=== PATIENT | female | born 1970 | race Caucasian/White ===

== ENCOUNTER 2020-07-18 21:05 | Observation (INO) | payer BC ==
[2020-07-18] MEDS ORDERED: ASPIRIN 81 MG PO STA (21:48)
[2020-07-18] MEDS ORDERED: NITROGLYCERIN SL TABS 0.4 MG TAB SUBLINGUAL STA (21:48)
--- NOTE | 2020-07-18 21:50 | ED ---
General Adult HPI - General Chief complaint: Shortness of Breath Stated complaint: Rib Pain Time Seen by Provider: 07/18/20 21:35 Source: patient, RN notes reviewed Mode of arrival: ambulatory Limitations: no limitations - History of Present Illness Initial comments: Patient is a pleasant 49-year-old female presenting to the emergency Department with chest tightness. Onset of symptoms was several days ago and has progressed since that time. Comfort is more so on the left lateral chest and does wrap around. Discomfort does involve the right side as well. Discomfort does increase somewhat with deep breaths. Otherwise no dyspnea. No nausea. No diaphoresis. No history of similar symptoms previously. - Related Data Allergies Allergy/AdvReac Type Severity Reaction Status Date / Time No Known Allergies Allergy Verified 07/18/20 21:17 Review of Systems ROS Statement: Those systems with pertinent positive or pertinent negative responses have been documented in the HPI. ROS Other: All systems not noted in ROS Statement are negative. Constitutional: Denies: fever Eyes: Denies: eye pain ENT: Denies: ear pain Respiratory: Denies: cough Cardiovascular: Reports: as per HPI, chest pain Endocrine: Denies: fatigue Gastrointestinal: Denies: abdominal pain Genitourinary: Denies: dysuria Musculoskeletal: Denies: arthralgia Skin: Denies: rash Neurological: Denies: weakness Past Medical History Additional Past Medical History / Comment(s): cyst to roof of mouth History of Any Multi-Drug Resistant Organisms: None Reported Additional Past Surgical History / Comment(s): drain placed to cyst in the roof of her mouth Past Psychological History: No Psychological Hx Reported Smoking Status: Former smoker Past Alcohol Use History: None Reported Past Drug Use History: None Reported General Exam Limitations: no limitations General appearance: alert, in no apparent distress Head exam: Present: normocephalic Eye exam: Present: normal appearance Neck exam: Present: normal inspection Respiratory exam: Present: normal lung sounds bilaterally. Absent: chest wall tenderness Cardiovascular Exam: Present: regular rate, normal rhythm Expanded Peripheral pulses: 2+: Radial (R), Radial (L), Dorsalis Pedis (R), Dorsalis Pedis (L) GI/Abdominal exam: Present: soft. Absent: distended, tenderness Extremities exam: Present: normal inspection. Absent: pedal edema, calf tenderness Back exam: Present: normal inspection. Absent: tenderness Neurological exam: Present: alert Psychiatric exam: Present: normal affect, normal mood Skin exam: Present: normal color Course Vital Signs 07/18/20 07/18/20 21:12 22:10 Temperature 97.5 F L Pulse Rate 62 Respiratory 18 18 Rate Blood Pressure 101/67 O2 Sat by Pulse 98 Oximetry EKG Findings - EKG Comments: EKG Findings:: Sinus bradycardia 53. NH 120. QRS 82. QT 466. QTc 437. Normal axis. Normal QRS. No acute ST change. Medical Decision Making - Medical Decision Making Patient reevaluated and resting comfortably in bed. Symptoms have improved however not completely resolved. Patient updated on results and plan. Case was discussed with Dr. jones, who will admit for hospital call. - Lab Data Result diagrams: 07/18/20 22:26 07/18/20 22:26 Lab Results 07/18/20 07/18/20 07/18/20 Range/Units 22:26 22:26 22:26 WBC 7.1 (3.8-10.6) k/uL RBC 4.45 (3.80-5.40) m/uL Hgb 14.3 (11.4-16.0) gm/dL Hct 40.7 (34.0-46.0) % MCV 91.5 (80.0-100.0) fL MCH 32.2 (25.0-35.0) pg MCHC 35.2 (31.0-37.0) g/dL RDW 11.7 (11.5-15.5) % Plt Count 240 (150-450) k/uL MPV 7.1 Neutrophils % 50 % Lymphocytes % 39 % Monocytes % 5 % Eosinophils % 3 % Basophils % 1 % Neutrophils # 3.6 (1.3-7.7) k/uL Lymphocytes # 2.8 (1.0-4.8) k/uL Monocytes # 0.4 (0-1.0) k/uL Eosinophils # 0.2 (0-0.7) k/uL Basophils # 0.1 (0-0.2) k/uL PT 10.2 (9.0-12.0) sec INR 0.9 (<1.2) APTT 26.4 (22.0-30.0) sec D-Dimer 0.24 (<0.60) mg/L FEU Sodium 137 (137-145) mmol/L Potassium 4.1 (3.5-5.1) mmol/L Chloride 103 (98-107) mmol/L Carbon Dioxide 26 (22-30) mmol/L Anion Gap 8 mmol/L BUN 13 (7-17) mg/dL Creatinine 0.64 (0.52-1.04) mg/dL Est GFR (CKD-EPI)AfAm >90 (>60 ml/min/1.73 sqM) Est GFR (CKD-EPI)NonAf >90 (>60 ml/min/1.73 sqM) Glucose 98 (74-99) mg/dL Calcium 9.2 (8.4-10.2) mg/dL Magnesium 2.1 (1.6-2.3) mg/dL Total Bilirubin 0.4 (0.2-1.3) mg/dL AST 25 (14-36) U/L ALT 22 (4-34) U/L Alkaline Phosphatase 93 (38-126) U/L Troponin I (0.000-0.034) ng/mL Total Protein 7.2 (6.3-8.2) g/dL Albumin 4.2 (3.5-5.0) g/dL 07/18/20 Range/Units 22:26 WBC (3.8-10.6) k/uL RBC (3.80-5.40) m/uL Hgb (11.4-16.0) gm/dL Hct (34.0-46.0) % MCV (80.0-100.0) fL MCH (25.0-35.0) pg MCHC (31.0-37.0) g/dL RDW (11.5-15.5) % Plt Count (150-450) k/uL MPV Neutrophils % % Lymphocytes % % Monocytes % % Eosinophils % % Basophils % % Neutrophils # (1.3-7.7) k/uL Lymphocytes # (1.0-4.8) k/uL Monocytes # (0-1.0) k/uL Eosinophils # (0-0.7) k/uL Basophils # (0-0.2) k/uL PT (9.0-12.0) sec INR (<1.2) APTT (22.0-30.0) sec D-Dimer (<0.60) mg/L FEU Sodium (137-145) mmol/L Potassium (3.5-5.1) mmol/L Chloride (98-107) mmol/L Carbon Dioxide (22-30) mmol/L Anion Gap mmol/L BUN (7-17) mg/dL Creatinine (0.52-1.04) mg/dL Est GFR (CKD-EPI)AfAm (>60 ml/min/1.73 sqM) Est GFR (CKD-EPI)NonAf (>60 ml/min/1.73 sqM) Glucose (74-99) mg/dL Calcium (8.4-10.2) mg/dL Magnesium (1.6-2.3) mg/dL Total Bilirubin (0.2-1.3) mg/dL AST (14-36) U/L ALT (4-34) U/L Alkaline Phosphatase (38-126) U/L Troponin I <0.012 (0.000-0.034) ng/mL Total Protein (6.3-8.2) g/dL Albumin (3.5-5.0) g/dL - Radiology Data Radiology results: image reviewed (Chest x-ray shows no acute process) Disposition Clinical Impression: Chest pain Disposition: ADMITTED IP TO THIS HOSP Is patient prescribed a controlled substance at d/c from ED?: No Referrals: Antoni Busby DO [Primary Care Provider] - 1-2 days Decision Time: 23:25
[2020-07-18 22:38] LABS: Basophils # (A) 0.1 k/uL (0-0.2); Basophils % (A) 1 %; Eosinophils # (A) 0.2 k/uL (0-0.7); Eosinophils % (A) 3 %; HCT 40.7 % (34.0-46.0); HGB 14.3 gm/dL (11.4-16.0); Lymphocytes # (A) 2.8 k/uL (1.0-4.8); Lymphocytes % (A) 39 %; MCH 32.2 pg (25.0-35.0); MCHC 35.2 g/dL (31.0-37.0); MCV 91.5 fL (80.0-100.0); Mean Platelet Volume 7.1; Monocytes # (A) 0.4 k/uL (0-1.0); Monocytes % (A) 5 %; Neutrophils # (A) 3.6 k/uL (1.3-7.7); Neutrophils % (A) 50 %; Platelet Count 240 k/uL (150-450); RBC 4.45 m/uL (3.80-5.40); RDW 11.7 % (11.5-15.5); WBC 7.1 k/uL (3.8-10.6)
--- NOTE | 2020-07-18 22:49 | XR ---
EXAMINATION TYPE: XR chest 2V DATE OF EXAM: 07/18/2020 COMPARISON: NONE HISTORY: Left-sided rib pain. Short of breath. TECHNIQUE: 2 views FINDINGS: Heart and mediastinum are normal. Lungs are clear. Diaphragm is normal. Bony thorax appears normal. There are chest leads. IMPRESSION: Normal chest.
[2020-07-18 22:54] LABS: ALT 22 U/L (4-34); AST 25 U/L (14-36); African American GFR (CKD) >90 (>60 ml/min/1.73 sqM); Albumin 4.2 g/dL (3.5-5.0); Alkaline Phosphatase 93 U/L (38-126); Anion Gap 8 mmol/L; Blood Urea Nitrogen 13 mg/dL (7-17); Calcium 9.2 mg/dL (8.4-10.2); Carbon Dioxide 26 mmol/L (22-30); Chloride 103 mmol/L (98-107); Glucose 98 mg/dL (74-99); Magnesium 2.1 mg/dL (1.6-2.3); Non-African American GFR(CKD) >90 (>60 ml/min/1.73 sqM); Potassium 4.1 mmol/L (3.5-5.1); Sodium 137 mmol/L (137-145); Total Bilirubin 0.4 mg/dL (0.2-1.3); Total Protein 7.2 g/dL (6.3-8.2)
[2020-07-18 23:11] LABS: D-Dimer 0.24 mg/L FEU (<0.60); INR 0.9 (<1.2); Partial Thromboplastin Time 26.4 sec (22.0-30.0); Prothrombin Time 10.2 sec (9.0-12.0)
[2020-07-18] MEDS ORDERED: NITROGLYCERIN SL TABS 0.4 MG TAB SUBLINGUAL PRN (23:25)
--- NOTE | 2020-07-19 02:44 | P.CONS ---
History of Present Illness - Reason for Consult Consult date: 07/19/20 - History of Present Illness Patient is a 49-year-old female PMH of anxiety and panic disorder who presented to the emergency room with complaints of chest pain. The patient reports that she initially developed a left-sided lateral wall sharp chest pain 2-3 weeks ago. Pain was intermittent, brought on by lifting heavy objects or by taking deep breaths, 7 out of 10 when it would occur, lasting only for a few seconds, n on-radiating. She notes that the pain was not bothering her much but she then developed intermittent substernal pressure, 8/10, occuring daily after her work shifts, lasting for several minutes at a time, with no clear alleviating or exacerbating features, nonradiating, with associated shortness of breath, nausea, and dizziness. She denied leg pain or leg swelling. She also denied fever, cough, headaches, diarrhea, or abdominal pain. She underwent an extensive evaluation in the emergency room with a chest x-ray that was unremarkable. EKG reveals sinus bradycardia at 53 bpm with T-wave inv ersion in lead V-[address]/T-wave changes noted as reviewed by me. Laboratory evaluation revealed a troponin of less than 0.012 and d-dimer 0.24. Review of Systems Pertinent positives and negatives as discussed in HPI, a complete review of systems was performed and all other systems are negative. Past Medical History Additional Past Medical History / Comment(s): cyst to roof of mouth History of Any Multi-Drug Resistant Organisms: None Reported Additional Past Surgical History / Comment(s): drain placed to cyst in the roof of her mouth Past Psychological History: No Psychological Hx Reported Smoking Status: Former smoker Past Alcohol Use History: None Reported Past Drug Use History: None Reported Medications and Allergies Allergies Allergy/AdvReac Type Severity Reaction Status Date / Time No Known Allergies Allergy Verified 07/18/20 21:17 Physical Exam Vitals: Vital Signs Temp Pulse Resp BP Pulse Ox 07/19/20 00:57 63 16 112/75 97 07/18/20 23:59 104/64 07/18/20 23:27 64 16 113/70 98 07/18/20 22:10 18 07/18/20 21:12 97.5 F L 62 18 101/67 98 Intake and Output 07/18/20 07/18/20 07/19/20 14:59 22:59 06:59 Other: Weight 74.843 kg General: non toxic, no distress, appears at stated age, overweight Derm: no unusual rashes/lesions no unusual ecchymoses, warm, dry Head: atraumatic, normocephalic, symmetric Eyes: EOMI, no lid lag, anicteric sclera, pupils equal round reactive to light ENT: Nose and ears atraumatic, no thrush, no pharyngeal erythema Neck: No thyromegaly, no cervical lymphadenopathy, trachea midline, supple Mouth: no lip lesion, mucus membranes moist Cardiovascular: S1S2 reg, no murmur, positive posterior tibial pulse bilateral, no edema, capillary refill less than 2 seconds Lungs: CTA bilateral, no rhonchi, no rales , no accessory muscle use Abdominal: soft, nontender to palpation, no guarding, no appreciable organomegaly, normal bowel sounds Ext: no gross muscle atrophy, muscle strength 5 out of 5 in all 4 extremities grossly, no contractures, Neuro: CN II-XI grossly intact, light touch intact all 4 extremities, finger to nose within normal limits, Psych: Alert, oriented, appropriate affect Results CBC & Chem 7: 07/18/20 22:26 07/18/20 22:26 Assessment and Plan Plan: Chest discomfort, with atypical features, ACS versus panic disorder -Cardiology consult -Cardiac monitoring -Trend troponin -Continue with aspirin DVT prophylaxis -Heparin subq The patient is admitted with an anticipated less than 2 midnight stay for evaluation of chest pain CODE STATUS: Full Code Discussed with: Patient Anticipated discharge date: in am Anticipated discharge place: home A total of 35 minutes was spent on the care of this complex patient more than 50% of the time was spent in counseling and care coordination.
[2020-07-19] MEDS ORDERED: ALPRAZolam 1 MG TAB PO STA (03:08)
[2020-07-19] MEDS: NITROGLYCERIN OINT 1 INCH/GM PACKET TOPICAL SCH ×2 (03:14→08:44)
[2020-07-19 05:45] LABS: Cholesterol 193 mg/dL (<200); HDL Cholesterol 70 mg/dL (40-60); LDL Cholesterol,Calculated 105 mg/dL (0-99); Triglycerides 92 mg/dL (<150)
[2020-07-19] MEDS ORDERED: HEPARIN SODIUM,PORCINE 5,000 UNIT/ML 1 ML VIAL SQ SCH (08:00)
[2020-07-19 08:38] VITALS: BP 111/55; PULSE 61; RESP 16; TEMP 97.9
[2020-07-19] MEDS ORDERED: ASPIRIN 325 MG TAB PO SCH (09:00)
--- NOTE | 2020-07-19 10:05 | P.CRDCN ---
History of Present Illness History of present illness: HISTORY OF PRESENTING ILLNESS This is a pleasant 49-year-old female past medical history significant for former smoker and anxiety. 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 We have been asked to see in consultation for chest pain. Patient is seen and examined in the emergency department. Patient states yesterday before work she started getting left sided rib pain that radiated to her mid sternal chest and back. Of note patient works for [employer], and lifts a lot of heavy boxes. 2 weeks ago she was lifting a heavy box onto a conveyor belt and had this similar left-sided rib pain. She states that it's been getting worse over the past 2 weeks. Yesterday evening she states that the pain became unbearable and she presented to the emergency department. She describes the pain as 10/10 and a constant, dull aching pain and it lasted for hours. She states that she's been taking for extra strength Tylenol every day for the past 2 weeks and has had some relief. She has not had relief from this pain until she came to the emergency department she endorses some shortness of breath yesterday. The pain does not get worse with exertion and does not get better with rest. She denies palpitations or weakness, lightheadedness, syncope. She does endorse being very fatigued over the past year. She denies any symptoms or other orthopnea or difficulty breathing while sleeping. She states that she is a former smoker quit in 2019. Denies any history of coronary artery disease, hypertension, OR, stroke, diabetes. She denies alcohol or illicit drug use. She states that her father did of a heart attack when he was at the age of 75. Laboratory data reviewed, troponin negative 3, BNP 23 WBC 7.1, hemoglobin 14.3, platelets 240, sodium 137, potassium 4.1, creatinine 0.64, Vital signs blood pressure 111/55, heart rate 61, 99% on room air, afebrile. Patient is currently not on any cardiac medications at home DIAGNOSTICS EKG reveals sinus bradycardia, no ST-T wave abnormalities. 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 REVIEW OF SYSTEMS At the time of my exam: CONSTITUTIONAL: Denies fever or chills. CARDIOVASCULAR: +chest pain, +shortness of breath. Denies orthopnea, PND or palp itations. RESPIRATORY: Denies cough. GASTROINTESTINAL: Denies abdominal pain, diarrhea, constipation, nausea or vomiting. MUSCULOSKELETAL: +left sided rib pain, +back pain. Denies myalgias. NEUROLOGIC: Denies numbness, tingling, headacbe or weakness. ENDOCRINE: Denies fatigue, weight change, polydipsia or polyurina. GENITOURINARY: Denies burning, hematuria or urgency with micturation. HEMATOLOGIC: Denies history of anemia or bleeding. PHYSICAL EXAMINATION CONSTITUTIONAL: No apparent distress. HEENT: Head is normocephalic. Pupils are equal, round. Sclerae anicteric. Mucous membranes of the mouth are moist. No JVD. No carotid bruit. CHEST EXAMINATION: Lungs are clear to auscultation. No chest wall tenderness is noted on palpation or with deep breathing. HEART EXAMINATION: Regular rate and rhythm. S1, S2 heard. No murmurs, gallops or rub. ABDOMEN: Soft, nontender. Positive bowel sounds. EXTREMITIES: 2+ peripheral pulses, no lower extremity edema and no calf tenderness. SKIN: intact, no wounds or rashes NEUROLOGIC EXAMINATION: Patient is awake, alert and oriented x3. ASSESSMENT -Atypical chest pain- most likely musculoskeletal. Patients 10-year ASCVD risk factor is low 0.7% PLAN -2D echo -Exercise stress echo -If Echo and exercise stress echo normal- ok to discharge patient -Emphasize on lifestyle, diet and exercise for lipid panel management Nurse Practitioner note has been reviewed, I agree with a documented findings and plan of care. Patient was seen and examined. Past Medical History Past Medical History: GERD/Reflux Additional Past Medical History / Comment(s): cyst to roof of mouth with re moval/caused deterioration of bones in mouth and has had multiple dental procedures to restore teeth, pt states she has felt "weak" since oral surgery, restless/painful legs lately at night, recent "bloating whenever I eat" History of Any Multi-Drug Resistant Organisms: None Reported Additional Past Surgical History / Comment(s): Cystectomy/drain placed to cyst in the roof of her mouth at [facility] Past Anesthesia/Blood Transfusion Reactions: No Reported Reaction Smoking Status: Former smoker - Past Family History Father Family Medical History: Myocardial Infarction (OR) Additional Family Medical History / Comment(s): Father of a massive OR at the age of 75 yrs. Mother Additional Family Medical History / Comment(s): Mother had a leaky heart valve. She in her 70s. Medications and Allergies Home Medications Medication Instructions Recorded Confirmed Type ALPRAZolam [Xanax] 0.5 mg PO DAILY PRN 07/19/20 07/19/20 History Omeprazole 40 mg PO DAILY 07/19/20 07/19/20 History Allergies Allergy/AdvReac Type Severity Reaction Status Date / Time No Known Allergies Allergy Verified 07/19/20 06:48 Physical Exam Vitals: Vital Signs Temp Pulse Pulse Resp BP BP Pulse Ox 07/19/20 08:37 97.9 F 61 16 111/55 99 07/19/20 04:50 68 18 113/77 97 07/19/20 00:57 63 16 112/75 97 07/18/20 23:59 104/64 07/18/20 23:27 64 16 113/70 98 07/18/20 22:10 18 07/18/20 21:12 97.5 F L 62 18 101/67 98 Intake and Output 07/18/20 07/19/20 07/19/20 22:59 06:59 14:59 Other: Weight 74.843 kg 74.843 kg Results 07/18/20 22:26 07/18/20 22:26 Cardiac Enzymes 07/18/20 07/18/20 07/19/20 Range/Units 22:26 22:26 01:35 AST 25 (14-36) U/L Troponin I <0.012 <0.012 (0.000-0.034) ng/mL 07/19/20 Range/Units 05:12 AST (14-36) U/L Troponin I <0.012 (0.000-0.034) ng/mL Coagulation 07/18/20 Range/Units 22:26 PT 10.2 (9.0-12.0) sec APTT 26.4 (22.0-30.0) sec Lipids 07/19/20 Range/Units 05:12 Triglycerides 92 (<150) mg/dL Cholesterol 193 (<200) mg/dL HDL Cholesterol 70 H (40-60) mg/dL CBC 07/18/20 Range/Units 22:26 WBC 7.1 (3.8-10.6) k/uL RBC 4.45 (3.80-5.40) m/uL Hgb 14.3 (11.4-16.0) gm/dL Hct 40.7 (34.0-46.0) % Plt Count 240 (150-450) k/uL Comprehensive Metabolic Panel 07/18/20 Range/Units 22:26 Sodium 137 (137-145) mmol/L Potassium 4.1 (3.5-5.1) mmol/L Chloride 103 (98-107) mmol/L Carbon Dioxide 26 (22-30) mmol/L BUN 13 (7-17) mg/dL Creatinine 0.64 (0.52-1.04) mg/dL Glucose 98 (74-99) mg/dL Calcium 9.2 (8.4-10.2) mg/dL AST 25 (14-36) U/L ALT 22 (4-34) U/L Alkaline Phosphatase 93 (38-126) U/L Total Protein 7.2 (6.3-8.2) g/dL Albumin 4.2 (3.5-5.0) g/dL Current Medications Generic Name Dose Route Start Last Admin Trade Name Freq PRN Reason Stop Dose Admin Aspirin 325 mg 07/19/20 09:00 07/19/20 08:47 Aspirin 325 Mg Tab PO 325 mg DAILY CEDRICK Administration Nitroglycerin 0.4 mg 07/18/20 23:25 Nitroglycerin Sl Tabs 0.4 Mg Tab SUBLINGUAL Q5M PRN Chest Pain Nitroglycerin 1 inch 07/19/20 00:00 07/19/20 08:44 Nitroglycerin Oint 1 Inch/Gm Packet TOPICAL Not Given Q6HR CEDRICK Intake and Output 07/18/20 07/19/20 07/19/20 22:59 06:59 14:59 Other: Weight 74.843 kg 74.843 kg Patient Weight 07/20/20 06:59 Weight 74.843 kg 07/18/20 22:26 07/18/20 22:26
[2020-07-19] MEDS ORDERED: DOBUTamine DRIP for NUC MED 500 MG in DEXTROSE/WATER 1 250ML.BAG IV PRN (11:13)
--- NOTE | 2020-07-19 12:00 | ECHOF ---
Referral Reason:cp MEASUREMENTS -------- HEIGHT: 162.6 cm WEIGHT: 74.8 kg BP: 111/55 RVIDd: 2.4 cm (< 3.3) IVSd: 0.8 cm (0.6 - 1.1) LVIDd: 4.5 cm (3.9 - 5.3) LVPWd: 0.9 cm (0.6 - 1.1) IVSs: 1.4 cm LVIDs: 3.1 cm LVPWs: 1.2 cm LA Diam: 3.2 cm (2.7 - 3.8) LAESV Index (A-L): 15.51 ml/m Ao Diam: 2.6 cm (2.0 - 3.7) AV Cusp: 1.8 cm (1.5 - 2.6) MV EXCURSION: 16.659 mm (> 18.000) MV EF SLOPE: 83 mm/s (70 - 150) EPSS: 0.5 cm MV E Jimbo: 0.85 m/s MV DecT: 231 ms MV A Jimbo: 0.59 m/s MV E/A Ratio: 1.44 RAP: 5.00 mmHg RVSP: 24.88 mmHg FINDINGS -------- Sinus rhythm. This was a technically adequate study. The left ventricular size is normal. Left ventricular wall thickness is normal. Overall left vent ricular systolic function is normal with, an EF between 55 - 60 %. The diastolic filling pattern is normal for the age of the patient 7.66. The right ventricle is normal in size. Normal LA size by volume 22+/-6 ml/m2. The right atrial size is normal. Interatrial and interventricular septum intact. The aortic valve is trileaflet, and appears structurally normal. No aortic stenosis or regurgitation. The mitral valve is normal. Mild mitral regurgitation is present. The tricuspid valve appears structurally normal. Mild tricuspid regurgitation present. Right vent ricular systolic pressure is normal at < 35 mmHg. The right ventricular systolic pressure, as measu red by Doppler, is 24.88mmHg. Trace/mild (physiologic) pulmonic regurgitation. The aortic root size is normal. Normal inferior vena cava with normal inspiratory collapse consistent with estimated right atrial pre ssure of 5 mmHg. There is no pericardial effusion. CONCLUSIONS -------- 1. Left ventricular wall thickness is normal. 2. Overall left ventricular systolic function is normal with, an EF between 55 - 60 %. 3. Normal LA size by volume 22+/-6 ml/m2. 4. The aortic valve is trileaflet, and appears structurally normal. No aortic stenosis or regurgitati on. 5. Mild mitral regurgitation is present. 6. Mild tricuspid regurgitation present. 7. Trace/mild (physiologic) pulmonic regurgitation. 8. There is no pericardial effusion. CHEMICAL APPLICATOR: Mile Lopez RDCS
[2020-07-19] MEDS ORDERED: ACETAMINOPHEN TAB 325 MG TAB PO PRN (12:54)
--- NOTE | 2020-07-19 13:43 | ECHOS ---
STRESS ECHOCARDIOGRAM LUMASON: N/A Vial INDICATIONS: Chest pain MEDICATIONS: BASELINE HEART RATE: 59 BASELINE BLOOD PRESSURE: 113/61 MAXIMUM HEART RATE: 145 MAXIMUM BLOOD PRESSURE: 155/83 85% MPHR: 144 100% MPHR: 169 METS: N/A MAXIMUM STAGE REACHED: 3 TOTAL EXERCISE TIME: 9:15 CLINICAL INFORMATION: Baseline rhythm sinus mechanism, rate 59, normal axis and intervals. Normal electrocardiogram. Baseline blood pressure 113/61 mmHg. Patient received infusion of dobutamine per protocol, peak rate 145 beats per minute which is equal to 85% maximum predicted heart rate. Peak blood pressure 155/83 mmHg. Electrocardiograph monitoring revealed rare PVCs. There was no evidence of diagnostic ischemic ST deviation. Baseline echocardiogram revealed normal wall motion. At peak infusion, there was normal wall motion and thickening without any hypokinesis or dyskinesis. CONCLUSION: 1. Normal electrocardiograph response to dobutamine infusion with occasional single PVCs. 2. Normal stress echocardiogram with no evidence of stress-induced ischemia. MMODL / IJN: [id number] /
--- NOTE | 2020-07-19 15:44 | P.DS ---
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 Pt was admitted for ACS rule out, and troponins, EKG, echo, and stress test did not indicate ischemia or suspicion of CAD. Cardiology consulted on patient and agreed that pain was likely musculoskeletal. 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 Pt was cleared from cardiac perspective and discharged home with instructions for pain control via tylenol, heat pads, and rest from exacerbating activity. She was given 1 wk work release, with need for reassessment by PCP prior to resuming heavy manual labor. Assessment: General: non toxic, no distress, appears at stated age Derm: no unusual rashes/lesions no unusual ecchymoses, warm, dry Head: atraumatic, normocephalic, symmetric Eyes: EOMI, no lid lag, anicteric sclera, Neck: trachea midline, supple Mouth: no lip lesion, mucus membranes moist Cardiovascular: S1S2 reg, no murmur, positive posterior tibial pulse bilateral, no edema, capillary refill less than 2 seconds Lungs: CTA bilateral, no rhonchi, no rales , no accessory muscle use Abdominal: soft, nontender to palpation, no guarding, no appreciable organomegaly, normal bowel sounds Ext: no gross muscle atrophy, muscle strength 5 out of 5 in all 4 extremities grossly, no contractures, Neuro: CN II-XI grossly intact, light touch intact all 4 extremities, finger to nose within normal limits, Psych: Alert, oriented, appropriate affect Patient Condition at Discharge: Good Plan - Discharge Summary Discharge Rx Participant: No New Discharge Prescriptions: New Acetaminophen Tab [Tylenol] 650 mg PO Q4HR PRN tab PRN Reason: Fever And/ Or Pain Continue ALPRAZolam [Xanax] 0.5 mg PO DAILY PRN PRN Reason: Anxiety Omeprazole 40 mg PO DAILY Discharge Medication List ALPRAZolam [Xanax] 0.5 mg PO DAILY PRN 07/19/20 [History] Acetaminophen Tab [Tylenol] 650 mg PO Q4HR PRN tab 07/19/20 [Rx] Omeprazole 40 mg PO DAILY 07/19/20 [History] Follow up Appointment(s)/Referral(s): Michelle Luciano MD [STAFF PHYSICIAN] - 2 Weeks (Cardiology office will call with appointment time) Antoni Busby DO [Primary Care Provider] - 07/25/20 9:30 am Patient Instructions/Handouts: Chest Pain (DC), Heart Healthy Diet (DC), Cholesterol and Your Health (GEN), Hyperlipidemia (GEN) Discharge Disposition: HOME SELF-CARE Care Plan Goals (MU): Heat and tylenol prn for left chest rib pain per physician
== END 2020-07-19 14:40 | disposition home or self-care (01) ==
LOC: EC 21:05 → 6NMEDSUR 23:25
PROVIDERS: ADMIT Internal Medicine; ATTEND Internal Medicine
DX: R07.89 Other chest pain (principal); X50.0XXA Overexertion from strenuous movement or load, initial encounter; R00.1 Bradycardia, unspecified; F41.0 Panic disorder [episodic paroxysmal anxiety]; F41.9 Anxiety disorder, unspecified; Z87.891 Personal history of nicotine dependence; Z82.49 Family history of ischemic heart disease and other diseases of the circulatory system; Z20.822 Contact with and (suspected) exposure to COVID-19
CPT/HCPCS: 99285; 36415; 93005; 93306; 93351; 85379; 83880; 80061; 80053; 83735; 84484 ×2; 85025; 85610; 85730; 87635; 71046; G0378 ×2; J1250

== ENCOUNTER 2021-04-03 08:16 | Emergency (ER) | payer BC ==
[2021-04-03] MEDS ORDERED: ONDANSETRON 4 MG/2 ML VIAL IVP STA (08:35)
[2021-04-03] MEDS ORDERED: KETOROLAC 30 MG/ML 1 ML VIAL IVP STA (08:35)
[2021-04-03] MEDS ORDERED: SODIUM CHLORIDE 0.9% 1,000 ML IV STA (08:35)
[2021-04-03] MEDS ORDERED: ACETAMINOPHEN TAB 325 MG TAB PO STA (08:36)
--- NOTE | 2021-04-03 08:57 | ED ---
General Adult HPI - General Chief complaint: Nausea/Vomiting/Diarrhea Stated complaint: Cough/Bodyaches/Nausea Time Seen by Provider: 04/03/21 08:20 Source: patient, RN notes reviewed Mode of arrival: ambulatory Limitations: no limitations - History of Present Illness Initial comments: This a 50-year-old female presents emergency Department chief complaint of fever or chills bodyaches cough congestion. Patient states that symptoms started last night progressed today. States she just feels very weak, run down states that she aches all over. Patient had multiple sick contacts. Patient has no complaints diarrhea constipation no chest pain no headache or dizziness - Related Data Home Medications Medication Instructions Recorded Confirmed Omeprazole 40 mg PO DAILY PRN 07/19/20 04/03/21 Acetaminophen Tab [Tylenol Tab] 500 mg PO Q6H PRN 04/03/21 04/03/21 Ibuprofen [Motrin Ib] 600 mg PO Q8H PRN 04/03/21 04/03/21 Allergies Allergy/AdvReac Type Severity Reaction Status Date / Time No Known Allergies Allergy Verified 04/03/21 10:17 Review of Systems ROS Statement: Those systems with pertinent positive or pertinent negative responses have been documented in the HPI. ROS Other: All systems not noted in ROS Statement are negative. Past Medical History Past Medical History: GERD/Reflux Additional Past Medical History / Comment(s): cyst to roof of mouth with removal/caused deterioration of bones in mouth and has had multiple dental procedures to restore teeth, pt states she has felt "weak" since oral surgery, restless/painful legs lately at night, recent "bloating whenever I eat" History of Any Multi-Drug Resistant Organisms: None Reported Additional Past Surgical History / Comment(s): Cystectomy/drain placed to cyst in the roof of her mouth at [facility] Past Anesthesia/Blood Transfusion Reactions: No Reported Reaction Past Psychological History: Anxiety Smoking Status: Former smoker Past Alcohol Use History: None Reported Past Drug Use History: Unable to Obtain - Past Family History Father Family Medical History: Myocardial Infarction (VT) Additional Family Medical History / Comment(s): Father of a massive VT at the age of 75 yrs. Mother Additional Family Medical History / Comment(s): Mother had a leaky heart valve. She in her 70s. General Exam Limitations: no limitations General appearance: alert, in no apparent distress Head exam: Present: atraumatic, normocephalic, normal inspection Eye exam: Present: normal appearance, PERRL, EOMI. Absent: scleral icterus, conjunctival injection, periorbital swelling ENT exam: Present: normal exam, normal oropharynx, mucous membranes moist Neck exam: Present: normal inspection, full ROM. Absent: tenderness, m eningismus, lymphadenopathy Respiratory exam: Present: normal lung sounds bilaterally. Absent: respiratory distress, wheezes, rales, rhonchi, stridor Cardiovascular Exam: Present: regular rate, normal rhythm, normal heart sounds. Absent: systolic murmur, diastolic murmur, rubs, gallop, clicks GI/Abdominal exam: Present: soft, normal bowel sounds. Absent: distended, tenderness, guarding, rebound, rigid Back exam: Absent: CVA tenderness (R), CVA tenderness (L) Neurological exam: Present: alert, oriented X3 Course Vital Signs 04/03/21 04/03/21 04/03/21 08:20 09:23 11:08 Temperature 99.2 F Pulse Rate 57 L 72 Respiratory 18 16 18 Rate Blood Pressure 88/50 110/64 107/59 O2 Sat by Pulse 100 97 Oximetry Medical Decision Making - Medical Decision Making Patient is positive for COVID-19. Patient was hydrated, given antiemetics did receive monoclonal antibodies will be discharged in stable condition. - Lab Data Result diagrams: 04/03/21 08:47 04/03/21 08:47 Lab Results 04/03/21 04/03/21 04/03/21 Range/Units 08:36 08:47 08:47 WBC 7.8 (3.8-10.6) k/uL RBC 4.33 (3.80-5.40) m/uL Hgb 13.8 (11.4-16.0) gm/dL Hct 40.9 (34.0-46.0) % MCV 94.4 (80.0-100.0) fL MCH 31.8 (25.0-35.0) pg MCHC 33.7 (31.0-37.0) g/dL RDW 12.0 (11.5-15.5) % Plt Count 254 (150-450) k/uL MPV 7.4 Neutrophils % 82 % Lymphocytes % 10 % Monocytes % 6 % Eosinophils % 1 % Basophils % 1 % Neutrophils # 6.4 (1.3-7.7) k/uL Lymphocytes # 0.8 L (1.0-4.8) k/uL Monocytes # 0.4 (0-1.0) k/uL Eosinophils # 0.1 (0-0.7) k/uL Basophils # 0.1 (0-0.2) k/uL Sodium 133 L (137-145) mmol/L Potassium 4.2 (3.5-5.1) mmol/L Chloride 102 (98-107) mmol/L Carbon Dioxide 25 (22-30) mmol/L Anion Gap 6 mmol/L BUN 10 (7-17) mg/dL Creatinine 0.67 (0.52-1.04) mg/dL Est GFR (CKD-EPI)AfAm >90 (>60 ml/min/1.73 sqM) Est GFR (CKD-EPI)NonAf >90 (>60 ml/min/1.73 sqM) Glucose 110 H (74-99) mg/dL Calcium 10.1 (8.4-10.2) mg/dL Total Bilirubin 0.3 (0.2-1.3) mg/dL AST 22 (14-36) U/L ALT 20 (4-34) U/L Alkaline Phosphatase 80 (38-126) U/L Total Protein 7.0 (6.3-8.2) g/dL Albumin 3.8 (3.5-5.0) g/dL Lipase 66 (23-300) U/L Coronavirus (PCR) Detected A (Not Detectd) Disposition Clinical Impression: COVID-19 Disposition: HOME SELF-CARE Condition: Stable Instructions (If sedation given, give patient instructions): Coronavirus Disease 2019 (COVID-19) Additional Instructions: Please return to the Emergency Department if symptoms worsen or any other concerns. Is patient prescribed a controlled substance at d/c from ED?: No Referrals: Antoni Busby DO [Primary Care Provider] - 1-2 days Time of Disposition: 11:20
[2021-04-03 09:17] LABS: Basophils # (A) 0.1 k/uL (0-0.2); Basophils % (A) 1 %; Eosinophils # (A) 0.1 k/uL (0-0.7); Eosinophils % (A) 1 %; HCT 40.9 % (34.0-46.0); HGB 13.8 gm/dL (11.4-16.0); Lymphocytes # (A) 0.8 k/uL (1.0-4.8); Lymphocytes % (A) 10 %; MCH 31.8 pg (25.0-35.0); MCHC 33.7 g/dL (31.0-37.0); MCV 94.4 fL (80.0-100.0); Mean Platelet Volume 7.4; Monocytes # (A) 0.4 k/uL (0-1.0); Monocytes % (A) 6 %; Neutrophils # (A) 6.4 k/uL (1.3-7.7); Neutrophils % (A) 82 %; Platelet Count 254 k/uL (150-450); RBC 4.33 m/uL (3.80-5.40); WBC 7.8 k/uL (3.8-10.6)
[2021-04-03 09:27] LABS: ALT 20 U/L (4-34); AST 22 U/L (14-36); African American GFR (CKD) >90 (>60 ml/min/1.73 sqM); Albumin 3.8 g/dL (3.5-5.0); Alkaline Phosphatase 80 U/L (38-126); Anion Gap 6 mmol/L; Blood Urea Nitrogen 10 mg/dL (7-17); Calcium 10.1 mg/dL (8.4-10.2); Carbon Dioxide 25 mmol/L (22-30); Chloride 102 mmol/L (98-107); Glucose 110 mg/dL (74-99); Lipase 66 U/L (23-300); Non-African American GFR(CKD) >90 (>60 ml/min/1.73 sqM); Potassium 4.2 mmol/L (3.5-5.1); Sodium 133 mmol/L (137-145); Total Bilirubin 0.3 mg/dL (0.2-1.3)
[2021-04-03] MEDS ORDERED: BAMLANIVIMAB (EUA) 700 MG, ETESEVIMAB (EUA) 1,400 MG in SODIUM CHLORIDE 0.9% 50 ML IVPB ONE (11:00)
[2021-04-03] MEDS ORDERED: SODIUM CHLORIDE 0.9% 50 ML IVPB ONE (11:30)
[2021-04-03 12:36] LABS: Appearance,Urine Cloudy (Clear); Bacteria,Urine Rare /hpf; Bilirubin,Urine Negative (Negative); Blood,Urine Negative (Negative); Color,Urine Light Yellow; Glucose,Urine (UA) Negative (Negative); Hyaline Casts,Urine 1 /lpf (0-2); Ketones,Urine Negative (Negative); Leukocyte Esterase,Urine Negative (Negative); Mucus,Urine Rare /hpf; Nitrite,Urine Negative (Negative); PH, Urine 5.5 (5.0-8.0); Protein,Urine Negative (Negative); RBC,Urine 1 /hpf (0-5); Specific Gravity,Urine 1.006 (1.001-1.035); Squamous Epithelial Cell,Urine 9 /hpf (0-4); Urobilinogen,Urine <2.0 mg/dL (<2.0); WBC,Urine 2 /hpf (0-5)
[2021-04-03 12:50] VITALS: BP 120/71; PULSE 80; RESP 17; TEMP 98
== END 2021-04-03 12:50 | disposition home or self-care (01) ==
LOC: EC 08:16
DX: U07.1 COVID-19 (principal); K21.9 Gastro-esophageal reflux disease without esophagitis; F41.9 Anxiety disorder, unspecified; Z87.891 Personal history of nicotine dependence
CPT/HCPCS: 99284; 96365; 96375 ×2; 96361 ×3; 36415; 80053; 83690; 85025; 81001; 87635; J2405; J1885; J3490

== ENCOUNTER 2021-09-28 11:33 | Emergency (ER) | payer BC ==
[2021-09-28 11:43] VITALS: RESP 18; TEMP 98.2
[2021-09-28 12:23] LABS: Basophils # (A) 0.1 k/uL (0-0.2); Basophils % (A) 1 %; Eosinophils # (A) 0.4 k/uL (0-0.7); Eosinophils % (A) 5 %; HCT 45.9 % (34.0-46.0); HGB 14.7 gm/dL (11.4-16.0); Lymphocytes % (A) 28 %; MCH 30.3 pg (25.0-35.0); MCHC 32.1 g/dL (31.0-37.0); MCV 94.6 fL (80.0-100.0); Mean Platelet Volume 7.2; Monocytes # (A) 0.4 k/uL (0-1.0); Monocytes % (A) 6 %; Neutrophils # (A) 3.9 k/uL (1.3-7.7); Neutrophils % (A) 56 %; Platelet Count 275 k/uL (150-450); RBC 4.85 m/uL (3.80-5.40); RDW 12.2 % (11.5-15.5)
--- NOTE | 2021-09-28 12:34 | XR ---
EXAMINATION TYPE: XR KUB DATE OF EXAM: 09/28/2021 12:20 PM CLINICAL HISTORY: Abdominal pain TECHNIQUE: Two Upright KUB images of the abdomen are obtained. COMPARISON: None. FINDINGS: Gas seen in nondistended stomach. Scattered gas is seen in non-distended small bowel loops. Gas and fecal material is seen in non-distended colon. There is no visceromegaly, pneumoperitoneum, or abnormal calcification appreciated. The lung bases are clear. There is dextroconvex scoliosis cent ered at L3 level. IMPRESSION: Overall nonobstructive bowel gas pattern.
[2021-09-28 12:39] LABS: ALT 17 U/L (4-34); AST 21 U/L (14-36); African American GFR (CKD) >90 (>60 ml/min/1.73 sqM); Albumin 4.6 g/dL (3.5-5.0); Alkaline Phosphatase 94 U/L (38-126); Amylase 57 U/L (30-110); Anion Gap 10 mmol/L; Blood Urea Nitrogen 14 mg/dL (7-17); Calcium 9.3 mg/dL (8.4-10.2); Carbon Dioxide 28 mmol/L (22-30); Chloride 102 mmol/L (98-107); Glucose 82 mg/dL (74-99); Lipase 105 U/L (23-300); Non-African American GFR(CKD) 89 (>60 ml/min/1.73 sqM); Potassium 4.5 mmol/L (3.5-5.1); Sodium 140 mmol/L (137-145); Total Bilirubin 0.3 mg/dL (0.2-1.3); Total Protein 8.1 g/dL (6.3-8.2)
[2021-09-28 12:46] LABS: Appearance,Urine Clear (Clear); Bilirubin,Urine Negative (Negative); Blood,Urine Negative (Negative); Color,Urine Light Yellow; Glucose,Urine (UA) Negative (Negative); Ketones,Urine Negative (Negative); Leukocyte Esterase,Urine Large (Negative); Mucus,Urine Rare /hpf; Nitrite,Urine Negative (Negative); PH, Urine 5.5 (5.0-8.0); Protein,Urine Negative (Negative); RBC,Urine 1 /hpf (0-5); Squamous Epithelial Cell,Urine 3 /hpf (0-4); Urobilinogen,Urine <2.0 mg/dL (<2.0); WBC,Urine 6 /hpf (0-5)
--- NOTE | 2021-09-28 14:09 | CT ---
EXAMINATION TYPE: CT abdomen pelvis w con CT DLP: 1001.3 mGycm, Automated exposure control for dose reduction was used. DATE OF EXAM: 09/28/2021 1:58 PM COMPARISON: None CLINICAL INDICATION:Female, 50 years old with history of abd pain, rectal bleeding; Abd pain, Rectal Bleeding TECHNIQUE: Standard CT of the abdomen and pelvis following the administration of 100 cc of Isovue 3 00 IV contrast material. Coronal and sagittal reformats were performed. FINDINGS: LOWER CHEST: Unremarkable ABDOMEN LIVER: Diffusely hypoattenuating parenchyma. GALLBLADDER AND BILE DUCTS: Unremarkable. PANCREAS: Hypoattenuating area in the anterior aspect of the head of the pancreas which is lower dens ity than the remainder of the pancreas and best appreciated on series 201 image 29 and series 203 satnam ge 50 measures 25 x 7 x 14 mm. SPLEEN: Unremarkable. ADRENAL GLANDS: Unremarkable. KIDNEYS AND URETERS: No evidence of hydronephrosis or renal calculus. The ureters are unremarkable. Left renal cyst measuring up to 33 mm. PELVIS BLADDER: Unremarkable REPRODUCTIVE: Unremarkable. ABDOMEN & PELVIS STOMACH AND BOWEL: No evidence of bowel obstruction. Limited evaluation without definitive evidence for gastrointestinal hemorrhage. PERITONEUM: No evidence of pneumoperitoneum or free fluid. VASCULATURE: No evidence of aortic aneurysm. MUSCULOSKELETAL: No acute osseous abnormalities. Mild multilevel disc degeneration changes are seen t hroughout the spine. LYMPH NODES: No gross evidence for lymphadenopathy. SOFT TISSUE/ABDOMINAL WALL: Fat filled umbilical hernia measuring 0.4 cm at the neck. IMPRESSION: 1. No evidence for acute abdominal process or evidence of hemorrhage within the rectum. 2. Pancreatic head lesion which should be further evaluated by nonemergent MRI pancreatic mass protoc ol with MRCP to rule out underlying neoplasm.
--- NOTE | 2021-09-28 14:56 | ED ---
Abdominal Pain HPI - General Chief Complaint: Abdominal Pain Stated Complaint: Adb Pain/Blood in stool Time Seen by Provider: 09/28/21 12:07 Source: patient Mode of arrival: ambulatory Limitations: no limitations - History of Present Illness Initial Comments: The patient is a 50-year-old female with past medical history of GERD who presents to the emergency Department with abdominal pain. States for the past week she has had left upper and left lower quadrant abdominal pain. On she went and had a bowel movement and noted that there was blood in the toilet. He describes it as bright red. No dark or tarry stools. No history of peptic u lcer disease. No alcohol or heavy NSAID use. She has never had a colonoscopy. Denies any rectal pain. No hematuria. Denies any vaginal bleeding or discharge. No previous history of abdominal surgeries. She did see her primary care physician who completed laboratory studies. She has attempted to call Dr. Brennan for colonoscopy No other alleviating, precipitating or modifying factors - Related Data Home Medications Medication Instructions Recorded Confirmed Omeprazole 40 mg PO DAILY PRN 07/19/20 04/03/21 Acetaminophen Tab [Tylenol Tab] 500 mg PO Q6H PRN 04/03/21 04/03/21 Ibuprofen [Motrin Ib] 600 mg PO Q8H PRN 04/03/21 04/03/21 Previous Rx's Medication Instructions Recorded Omeprazole [PriLOSEC] 20 mg PO AC-BID #60 cap 09/28/21 Polyethylene Glycol 3350 [Miralax] 17 gm PO DAILY #527 gm 09/28/21 Allergies Allergy/AdvReac Type Severity Reaction Status Date / Time No Known Allergies Allergy Verified 09/28/21 11:39 Review of Systems ROS Statement: Those systems with pertinent positive or pertinent negative responses have been documented in the HPI. ROS Other: All systems not noted in ROS Statement are negative. Past Medical History Past Medical History: GERD/Reflux Additional Past Medical History / Comment(s): cyst to roof of mouth with removal/caused deterioration of bones in mouth and has had multiple dental procedures to restore teeth, pt states she has felt "weak" since oral surgery, restless/painful legs lately at night, recent "bloating whenever I eat" History of Any Multi-Drug Resistant Organisms: None Reported Additional Past Surgical History / Comment(s): Cystectomy/drain placed to cyst in the roof of her mouth at [facility] Past Anesthesia/Blood Transfusion Reactions: No Reported Reaction Past Psychological History: Anxiety Smoking Status: Former smoker Past Alcohol Use History: None Reported Past Drug Use History: None Reported - Past Family History Father Family Medical History: Myocardial Infarction (ND) Additional Family Medical History / Comment(s): Father of a massive ND at the age of 75 yrs. Mother Additional Family Medical History / Comment(s): Mother had a leaky heart valve. She in her 70s. General Exam Limitations: no limitations General appearance: alert, in no apparent distress Head exam: Present: atraumatic, normocephalic, normal inspection Eye exam: Present: normal appearance, PERRL, EOMI. Absent: scleral icterus, conjunctival injection, periorbital swelling ENT exam: Present: normal exam, mucous membranes moist Neck exam: Present: normal inspection. Absent: tenderness, meningismus, lymphadenopathy Respiratory exam: Present: normal lung sounds bilaterally. Absent: respiratory distress, wheezes, rales, rhonchi, stridor Cardiovascular Exam: Present: regular rate, normal rhythm, normal heart sounds. Absent: systolic murmur, diastolic murmur, rubs, gallop, clicks GI/Abdominal exam: Present: soft, normal bowel sounds. Absent: distended, tenderness, guarding, rebound, rigid Rectal exam: Present: heme (+) stool, hemorrhoids. Absent: black stool, bloody stool Extremities exam: Present: normal inspection, full ROM, normal capillary refill. Absent: tenderness, pedal edema, joint swelling, calf tenderness Back exam: Present: normal inspection Neurological exam: Present: alert, oriented X3, CN II-XII intact Psychiatric exam: Present: normal affect, normal mood Skin exam: Present: warm, dry, intact, normal color. Absent: rash Course Vital Signs 09/28/21 09/28/21 11:39 15:19 Temperature 98.2 F Pulse Rate 68 80 Respiratory 18 18 Rate Blood Pressure 105/58 132/78 O2 Sat by Pulse 99 98 Oximetry Medical Decision Making - Medical Decision Making Upon arrival patient was placed into room 21. A thorough history and physical exam is performed. IV access established laboratory studies were conducted. Hemoglobin stable at 14.7. Occult is obtained and is positive. KUB and CT are performed which demonstrated no acute intra-abdominal process. She does have a pancreatic head lesion mass. Results are discussed with the patient. She will need outpatient colonoscopy. Patient is provided with several options to have this completed. Recommend that she take MiraLAX. She will be initially started on omeprazole. If she has any new or worsening symptoms return to the emergency room. Needs to follow up with her PCP for nonemergent MRI of her pancreas. Patient agreed with treatment plan and was discharged in stable condition - Lab Data Result diagrams: 09/28/21 12:09 09/28/21 12:09 Lab Results 09/28/21 09/28/21 09/28/21 Range/Units 12:07 12:09 12:09 WBC 7.0 (3.8-10.6) k/uL RBC 4.85 (3.80-5.40) m/uL Hgb 14.7 (11.4-16.0) gm/dL Hct 45.9 (34.0-46.0) % MCV 94.6 (80.0-100.0) fL MCH 30.3 (25.0-35.0) pg MCHC 32.1 (31.0-37.0) g/dL RDW 12.2 (11.5-15.5) % Plt Count 275 (150-450) k/uL MPV 7.2 Neutrophils % 56 % Lymphocytes % 28 % Monocytes % 6 % Eosinophils % 5 % Basophils % 1 % Neutrophils # 3.9 (1.3-7.7) k/uL Lymphocytes # 2.0 (1.0-4.8) k/uL Monocytes # 0.4 (0-1.0) k/uL Eosinophils # 0.4 (0-0.7) k/uL Basophils # 0.1 (0-0.2) k/uL Sodium (137-145) mmol/L Potassium (3.5-5.1) mmol/L Chloride (98-107) mmol/L Carbon Dioxide (22-30) mmol/L Anion Gap mmol/L BUN (7-17) mg/dL Creatinine (0.52-1.04) mg/dL Est GFR (CKD-EPI)AfAm (>60 ml/min/1.73 sqM) Est GFR (CKD-EPI)NonAf (>60 ml/min/1.73 sqM) Glucose (74-99) mg/dL Calcium (8.4-10.2) mg/dL Total Bilirubin (0.2-1.3) mg/dL AST (14-36) U/L ALT (4-34) U/L Alkaline Phosphatase (38-126) U/L Total Protein (6.3-8.2) g/dL Albumin (3.5-5.0) g/dL Amylase (30-110) U/L Lipase (23-300) U/L Urine Color Light Yellow Urine Appearance Clear (Clear) Urine pH 5.5 (5.0-8.0) Ur Specific [place] 1.010 (1.001-1.035) Urine Protein Negative (Negative) Urine Glucose (UA) Negative (Negative) Urine Ketones Negative (Negative) Urine Blood Negative (Negative) Urine Nitrite Negative (Negative) Urine Bilirubin Negative (Negative) Urine Urobilinogen <2.0 (<2.0) mg/dL Ur Leukocyte Esterase Large H (Negative) Urine RBC 1 (0-5) /hpf Urine WBC 6 H (0-5) /hpf Ur Squamous Epith Cells 3 (0-4) /hpf Urine Mucus Rare H (None) /hpf Stool Occult Blood Positive H (Negative) 09/28/21 Range/Units 12:09 WBC (3.8-10.6) k/uL RBC (3.80-5.40) m/uL Hgb (11.4-16.0) gm/dL Hct (34.0-46.0) % MCV (80.0-100.0) fL MCH (25.0-35.0) pg MCHC (31.0-37.0) g/dL RDW (11.5-15.5) % Plt Count (150-450) k/uL MPV Neutrophils % % Lymphocytes % % Monocytes % % Eosinophils % % Basophils % % Neutrophils # (1.3-7.7) k/uL Lymphocytes # (1.0-4.8) k/uL Monocytes # (0-1.0) k/uL Eosinophils # (0-0.7) k/uL Basophils # (0-0.2) k/uL Sodium 140 (137-145) mmol/L Potassium 4.5 (3.5-5.1) mmol/L Chloride 102 (98-107) mmol/L Carbon Dioxide 28 (22-30) mmol/L Anion Gap 10 mmol/L BUN 14 (7-17) mg/dL Creatinine 0.77 (0.52-1.04) mg/dL Est GFR (CKD-EPI)AfAm >90 (>60 ml/min/1.73 sqM) Est GFR (CKD-EPI)NonAf 89 (>60 ml/min/1.73 sqM) Glucose 82 (74-99) mg/dL Calcium 9.3 (8.4-10.2) mg/dL Total Bilirubin 0.3 (0.2-1.3) mg/dL AST 21 (14-36) U/L ALT 17 (4-34) U/L Alkaline Phosphatase 94 (38-126) U/L Total Protein 8.1 (6.3-8.2) g/dL Albumin 4.6 (3.5-5.0) g/dL Amylase 57 (30-110) U/L Lipase 105 (23-300) U/L Urine Color Urine Appearance (Clear) Urine pH (5.0-8.0) Ur Specific [place] (1.001-1.035) Urine Protein (Negative) Urine Glucose (UA) (Negative) Urine Ketones (Negative) Urine Blood (Negative) Urine Nitrite (Negative) Urine Bilirubin (Negative) Urine Urobilinogen (<2.0) mg/dL Ur Leukocyte Esterase (Negative) Urine RBC (0-5) /hpf Urine WBC (0-5) /hpf Ur Squamous Epith Cells (0-4) /hpf Urine Mucus (None) /hpf Stool Occult Blood (Negative) Disposition Clinical Impression: Hematochezia, Abdominal pain, Pancreatic mass Disposition: HOME SELF-CARE Condition: Stable Instructions (If sedation given, give patient instructions): Gastrointestinal Bleeding (ED) Additional Instructions: You need a colonoscopy - a surgeon or GI doctor can do this for you. Take Miralax every other day. Take the other medications as directed. Return for any new or worsening symptoms. You will also need an MRI of your pancreas for further evaluation of your pancreatic mass. Prescriptions: Polyethylene Glycol 3350 [Miralax] 17 gm PO DAILY #527 gm Omeprazole [PriLOSEC] 20 mg PO AC-BID #60 cap Is patient prescribed a controlled substance at d/c from ED?: No Referrals: Antnoi Busby DO [Primary Care Provider] - 1-2 days Patricia Salcedo MD [STAFF PHYSICIAN] - 1-2 days Marilyn Infante MD [STAFF PHYSICIAN] - 1-2 days Jermaine Blackman DO [REFERRING] - 1-2 days Paula Correa DO [Doctor of Osteopathic Medicine] - 1-2 days Time of Disposition: 14:54
[2021-09-28 15:20] VITALS: BP 132/78; PULSE 80
== END 2021-09-28 15:19 | disposition home or self-care (01) ==
LOC: EC 11:33
DX: K92.1 Melena (principal); K86.9 Disease of pancreas, unspecified; K21.9 Gastro-esophageal reflux disease without esophagitis; Z79.83 Long term (current) use of bisphosphonates; Z87.891 Personal history of nicotine dependence; Z82.49 Family history of ischemic heart disease and other diseases of the circulatory system
CPT/HCPCS: 36415; 80053; 82150; 83690; 85025; 82272; 81001; 74018; 74177; 99284; Q9967

== ENCOUNTER → 2021-10-30 | Outpatient (CLI) | payer BC ==
--- NOTE | 2021-10-31 06:01 | MR ---
EXAMINATION TYPE: MR pancreas wo/w con DATE OF EXAM: 10/30/2021 COMPARISON: CT scan 09/28/2021 HISTORY: Abdominal pain, rectal bleeding, abnormal CT. CONTRAST: Standard multiplanar, multisequence MRI departmental protocol images were obtained without contrast a nd with 7 mL intravenous Gadavist gadolinium contrast. Lung bases show no sign of pleural effusion. Liver is intact. Gallbladder appears normal. The bile du cts are not dilated. Spleen appears normal. Pancreas has normal size and contour. Pancreatic duct is not dilated. There appears to be accessory pancreatic duct. There is 1.5 x 1 cm area of fluid signal with septation at the anterior pancreatic head. This is nonenhancing and consistent with a pseudocyst . No evidence of a solid pancreatic mass. There is no adrenal mass. Kidneys have normal size. No hydronephrosis. There is 2.8 cm cortical cyst lower pole left kidney. No retroperitoneal adenopathy. There is no ascites. No sign of a bowel obstru ction. There is normal enhancement of the portal venous system. IMPRESSION: Nonenhancing fluid signal lesion in the anterior pancreatic head consistent with pseudocyst and not c hanged compared to CT scan of 09/28/2021.
== END | disposition home or self-care (01) ==
LOC: RADMRIMAIN 20:58
PROVIDERS: ATTEND Family Medicine
DX: C25.9 Malignant neoplasm of pancreas, unspecified (principal); K62.5 Hemorrhage of anus and rectum; R93.3 Abnormal findings on diagnostic imaging of other parts of digestive tract; R10.9 Unspecified abdominal pain
CPT/HCPCS: 74183; A9585

== ENCOUNTER → 2022-10-25 | Outpatient (CLI) | payer BC ==
--- NOTE | 2022-10-25 12:32 | MR ---
EXAMINATION TYPE: MR pancreas / mrcp wo/w con DATE OF EXAM: 10/25/2022 10:11 AM INDICATION: Patient age:Female; 51 years old; Reason for study: K86.3. Pancreatic Pseudocyst COMPARISON: CT scan abdomen from 09/28/2021, MRI 10/30/2021. TECHNIQUE: Multiplanar multi-sequence imaging was performed without contrast. Post contrast imaging was performed. Post IV contrast subtraction images were also submitted for review. IV Contrast: 7.5 cc Gadavist FINDINGS: LOWER CHEST: No gross irregularity. ABDOMEN Liver: Signal dropout and chemical shift imaging out of phase. Gallbladder and Bile ducts: Unremarkable. Pancreas: Pancreatic body/tail 3 mm high T2 signal focus additional focus within the superior aspect of the pancreatic body measuring 5 mm as well as the pancreatic head measuring up to 16 mm. Uncinate process lesion present measuring 7 mm. These are all stable from most recent prior. No abnormal postc ontrast enhancement. Spleen: Unremarkable. Adrenal glands: Unremarkable. Kidneys: Appearing left renal cyst. No obstructive uropathy. Stomach and Bowel: Unremarkable as visualized. Peritoneum: No evidence of pneumoperitoneum or free fluid. Vasculature: Unremarkable. No aortic aneurysm. Musculoskeletal: The osseous structures appear intact. Lymph Nodes: No gross evidence for lymphadenopathy. Abdominal wall: Unremarkable. IMPRESSION: 1. 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 Consider surveillance imaging in one year to ensure stability. 2. Hepatic steatosis. 3. Simple left renal cyst.
== END | disposition home or self-care (01) ==
LOC: RADMRIMAIN 08:39
PROVIDERS: ATTEND Family Medicine
DX: K76.0 Fatty (change of) liver, not elsewhere classified (principal); K86.3 Pseudocyst of pancreas; N28.1 Cyst of kidney, acquired
CPT/HCPCS: 74183; A9585

== ENCOUNTER → 2023-12-26 | Outpatient (CLI) | payer BC ==
--- NOTE | 2024-01-18 15:54 | MR ---
Site ID synapse default Patient Marilyn Wright A ID [id number] Age/Gender: 53Y, F Order # N/A Procedure MRI ABDOMEN AND MRCP WO/W Date 12/26/2023 8:14:34 AM EXAMINATION TYPE: MR abdomen and MRCP wo/w con DATE OF EXAM: 01/02/2024 3:08 PM INDICATION: Patient age: Female; 53 year old; Reason for study: Follow-up pancreatic cyst COMPARISON: MR pancreas 10/25/2022, 10/30/2021, CT abdomen and pelvis 09/28/2021 TECHNIQUE: Multiplanar multi-sequence imaging was performed of the abdomen without and with IV contr ast. MRCP was performed. The patient was given 7 ccs of Gadavist intravenously and dynamic imaging wa s performed. Post IV contrast subtraction images were also submitted for review. FINDINGS: LOWER CHEST: No gross irregularity. ABDOMEN Liver: Unremarkable. Gallbladder and Bile ducts: Unremarkable. Pancreas: No pancreatic duct dilatation. The pancreas enhances homogeneously. Stable pancreatic head/ uncinate process 16mm T2 hyperintense lesion (series 601, image 30). There is connection with a side branch duct. Stable uncinate process 7 mm T2 hyperintense lesion (series 601, image 29). Stable pancr eatic body 4 mm T2 hyperintense lesion (series 601, 33). Stable pancreatic body 4 mm T2 hyperintense lesion (series 601, image 35). Stable pancreatic head medial 4 mm T2 hyperintense lesion (series 601, image 24). No corresponding enhancement or mural nodularity identified. Stable from prior exams. Spleen: Unremarkable. Adrenal glands: Unremarkable. Kidneys: No hydronephrosis. Prominent left extra renal pelvis. Stable left hepatic lobe exophytic 3.3 cm T2 hyperintense thin-walled simple cyst. Stomach and Bowel: Unremarkable as visualized. Peritoneum: No evidence of pneumoperitoneum, free fluid, or adenopathy. Vasculature: Unremarkable. No aortic aneurysm. Abdominal wall: Tiny fat filled umbilical hernia. Musculoskeletal: The osseous structures appear intact. Dextrocurvature of the lumbar spine with apex at L3. 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 Follow-up MR in one year is recommended to assess for continued stabilit y.
== END | disposition home or self-care (01) ==
LOC: RADMRIMAIN 09:02
PROVIDERS: ATTEND Surgery
DX: K86.2 Cyst of pancreas (principal); K86.3 Pseudocyst of pancreas; Z80.0 Family history of malignant neoplasm of digestive organs
CPT/HCPCS: 74183; A9585

== ENCOUNTER 2024-04-08 20:03 | Emergency (ER) | payer BC, OTHER ==
[2024-04-08 20:19] VITALS: TEMP 98.5
--- NOTE | 2024-04-08 20:59 | ED ---
General Adult HPI - General Chief complaint: Back Pain/Injury Stated complaint: GABO, numbness Time Seen by Provider: 04/08/24 20:18 Source: patient, RN notes reviewed Mode of arrival: ambulatory Limitations: no limitations - History of Present Illness Initial comments: This is a 53-year-old female presenting with left mid back pain and difficulty breathing x 1 hour. 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 Patient describes pain as sharp and constant (7/10). Patient states shortness of breath worsens with exertion. Patient denies cardiac history, p ancreatic history or history of blood clots. Patient denies urinary symptoms, hematuria. Patient states pain does not worsen with movement. Patient denies fever, chills, fatigue, dizziness, chest pain, abdominal pain, N/V/D. Onset/Timin -: hour(s) Time: 19:30 Radiation: flank, other (Left upper quadrant) Severity scale (1-10): 7 Quality: sharp Consistency: constant Improves with: none Worsens with: none Associated Symptoms: shortness of breath Treatments Prior to Arrival: none - Related Data Home Medications Medication Instructions Recorded Confirmed Omeprazole 40 mg PO DAILY PRN 07/19/20 04/03/21 Acetaminophen Tab [Tylenol Tab] 500 mg PO Q6H PRN 04/03/21 04/03/21 Ibuprofen [Motrin Ib] 600 mg PO Q8H PRN 04/03/21 04/03/21 Previous Rx's Medication Instructions Recorded Omeprazole [PriLOSEC] 20 mg PO AC-BID #60 cap 09/28/21 polyethylene glycoL 3350 [Miralax] 17 gm PO DAILY #527 gm 09/28/21 Cyclobenzaprine [Flexeril] 10 mg PO Q8H PRN #15 tab 04/09/24 Ibuprofen [Motrin] 600 mg PO Q8HR PRN #30 tab 04/09/24 Allergies Allergy/AdvReac Type Severity Reaction Status Date / Time No Known Allergies Allergy Verified 04/08/24 20:15 Review of Systems ROS Statement: Those systems with pertinent positive or pertinent negative responses have been documented in the HPI. ROS Other: All systems not noted in ROS Statement are negative. Past Medical History Past Medical History: GERD/Reflux Additional Past Medical History / Comment(s): cyst to roof of mouth with re moval/caused deterioration of bones in mouth and has had multiple dental procedures to restore teeth, pt states she has felt "weak" since oral surgery, restless/painful legs lately at night, recent "bloating whenever I eat" History of Any Multi-Drug Resistant Organisms: None Reported Additional Past Surgical History / Comment(s): Cystectomy/drain placed to cyst in the roof of her mouth at [facility] Past Anesthesia/Blood Transfusion Reactions: No Reported Reaction Past Psychological History: Anxiety Smoking Status: Former smoker Past Alcohol Use History: None Reported Past Drug Use History: None Reported - Past Family History Father Family Medical History: Myocardial Infarction (CO) Additional Family Medical History / Comment(s): Father of a massive CO at the age of 75 yrs. Mother Additional Family Medical History / Comment(s): Mother had a leaky heart valve. She in her 70s. General Exam Limitations: no limitations General appearance: alert, in no apparent distress Head exam: Present: atraumatic, normocephalic, normal inspection Eye exam: Present: normal appearance, PERRL, EOMI. Absent: scleral icterus, conjunctival injection, periorbital swelling ENT exam: Present: normal exam, mucous membranes moist Neck exam: Present: normal inspection. Absent: tenderness, meningismus, lymphadenopathy Respiratory exam: Present: normal lung sounds bilaterally. Absent: respiratory distress, wheezes, rales, rhonchi, stridor Cardiovascular Exam: Present: regular rate, normal rhythm, normal heart sounds. Absent: systolic murmur, diastolic murmur, rubs, gallop, clicks GI/Abdominal exam: Present: soft, normal bowel sounds. Absent: distended, tenderness, guarding, rebound, rigid Extremities exam: Present: normal inspection, full ROM, normal capillary refill. Absent: tenderness, pedal edema, joint swelling, calf tenderness Back exam: Present: normal inspection, full ROM. Absent: tenderness, CVA tende rness (R), CVA tenderness (L), paraspinal tenderness, vertebral tenderness Neurological exam: Present: alert, oriented X3, CN II-XII intact Psychiatric exam: Present: normal affect, normal mood Skin exam: Present: warm, dry, intact, normal color. Absent: rash Course Vital Signs 04/08/24 20:15 Temperature 98.5 F Pulse Rate 87 Respiratory 19 Rate Blood Pressure 111/61 O2 Sat by Pulse 97 Oximetry Medical Decision Making - Medical Decision Making Was pt. sent in by a medical professional or institution (FERNANDO Churchill, SENIOR MARKET RESEARCH ANALYST, urgent care, hospital, or retirement...) When possible be specific @ -[No] Did you speak to anyone other than the patient for history (EMS, parent, family, police, friend...)? What history was obtained from this source @ -[No] Did you review nursing and triage notes (agree or disagree)? Why? @ -[I reviewed and agree with nursing and triage notes] Were old charts reviewed (outside hosp., previous admission, EMS record, old EKG, old radiological studies, urgent care reports/EKG's, retirement records)? Report findings @ -[No old charts were reviewed] Differential Diagnosis (chest pain, altered mental status, abdominal pain women, abdominal pain men, vaginal bleeding, weakness, fever, dyspnea, syncope, headache, dizziness, GI bleed, back pain, seizure, CVA, palpatations, mental health, musculoskeletal)? @ -Differential Dyspnea: Coronary syndrome, arrhythmia, tamponade, asthma, COPD, pulmonary embolism, pneumonia, pneumothorax, pulmonary effusion, anaphylaxis, diabetic ketoacidosis, flailed chest, pulmonary contusion, diaphragmatic rupture, anemia, neuromuscular, this is not meant to be an all-inclusive list. Differential Back Pain: Strain, zoster, cauda equina syndrome, epidural abscess, vertebral osteomyelitis, discitis, fracture, subluxation, disc herniation, DJD, spinal stenosis, dissection, AAA, pancreatitis, peptic ulcer disease, pyelonephritis, kidney stone, this is not meant to be an all-inclusive list. EKG interpreted by me (3pts min.). @ -Sinus rhythm with sinus arrhythmia. Ventricular rate 69 bpm, RADHA 126 ms, QRS duration 89 ms, QTc 400 ms. X-rays interpreted by me (1pt min.). @ -[None done] CT interpreted by me (1pt min.). @ -[None done] U/S interpreted by me (1pt. min.). @ -[None done] What testing was considered but not performed or refused? (CT, X-rays, U/S, labs)? Why? @ -[None] What meds were considered but not given or refused? Why? @ -[None] Did you discuss the management of the patient with other professionals (professionals i.e. , PA, SENIOR MARKET RESEARCH ANALYST, lab, RT, psych nurse, hospital social worker, senior mobile web developer, teacher, learning officer, correctional casework specialist)? Give summary @ -[No] Was smoking cessation discussed for >3mins.? @ -[No] Was critical care preformed (if so, how long)? @ -[No] Were there social determinants of health that impacted care today? How? (Homelessness, low income, unemployed, alcoholism, drug addiction, transportation, low edu. Level, literacy, decrease access to med. care, half-way, rehab)? @ -[No] Was there de-escalation of care discussed even if they declined (Discuss DNR or withdrawal of care, Hospice)? DNR status @ -[No] What co-morbidities impacted this encounter? (DM, HTN, Smoking, COPD, CAD, Cancer, CVA, ARF, Chemo, Hep., AIDS, mental health diagnosis, sleep apnea, morbid obesity)? @ -[None] Was patient admitted / discharged? Hospital course, mention meds given and route, prescriptions, significant lab abnormalities, going to OR and other pertinent info. @ -[hospital course] Undiagnosed new problem with uncertain prognosis? @ -[No] Drug Therapy requiring intensive monitoring for toxicity (Heparin, Nitro, Insulin, Cardizem)? @ -[No] Were any procedures done? @ -[No] Diagnosis/symptom? @ -[default] Acute, or Chronic, or Acute on Chronic? @ -Acute Uncomplicated (without systemic symptoms) or Complicated (systemic symptoms)? @ -Complicated Side effects of treatment? @ -[No] Exacerbation, Progression, or Severe Exacerbation? @ -[No] Poses a threat to life or bodily function? How? (Chest pain, USA, CO, pneumonia, PE, COPD, DKA, ARF, appy, cholecystitis, CVA, Diverticulitis, Homicidal, Suicidal, threat to staff... and all critical care pts) @ -[No] - Lab Data Result diagrams: 04/08/24 21:09 04/08/24 21:09 Lab Results 04/08/24 04/08/24 04/08/24 Range/Units 21:09 21:09 21:09 WBC 6.7 (3.8-10.6) k/uL RBC 4.66 (3.80-5.40) m/uL Hgb 14.5 (11.4-16.0) gm/dL Hct 42.8 (34.0-46.0) % MCV 91.8 (80.0-100.0) fL MCH 31.2 (25.0-35.0) pg MCHC 34.0 (31.0-37.0) g/dL RDW 12.5 (11.5-15.5) % Plt Count 271 (150-450) k/uL MPV 7.6 Neutrophils % 63 % Lymphocytes % 25 % Monocytes % 6 % Eosinophils % 3 % Basophils % 1 % Neutrophils # 4.3 (1.3-7.7) k/uL Lymphocytes # 1.7 (1.0-4.8) k/uL Monocytes # 0.4 (0-1.0) k/uL Eosinophils # 0.2 (0-0.7) k/uL Basophils # 0.0 (0-0.2) k/uL PT 10.2 (10.0-12.5) sec INR 0.9 (<1.2) APTT 26.7 (22.0-30.0) sec D-Dimer 0.34 (<0.60) mg/L FEU Sodium 138 (137-145) mmol/L Potassium 3.8 (3.5-5.1) mmol/L Chloride 108 H (98-107) mmol/L Carbon Dioxide 24 (22-30) mmol/L Anion Gap 6 mmol/L BUN 8 (7-17) mg/dL Creatinine 0.60 (0.52-1.04) mg/dL Est GFR (CKD-EPI)AfAm >90 (>60 ml/min/1.73 sqM) Est GFR (CKD-EPI)NonAf >90 (>60 ml/min/1.73 sqM) Glucose 99 (74-99) mg/dL Plasma Lactic Acid Brian (0.7-2.0) mmol/L Calcium 8.6 (8.4-10.2) mg/dL Total Bilirubin 0.5 (0.2-1.3) mg/dL AST 20 (14-36) U/L ALT 39 H (4-34) U/L Alkaline Phosphatase 99 (38-126) U/L Troponin I (0.000-0.034) ng/mL Total Protein 7.2 (6.3-8.2) g/dL Albumin 4.0 (3.5-5.0) g/dL Amylase 52 (30-110) U/L Lipase 95 (23-300) U/L 04/08/24 04/08/24 Range/Units 21:09 21:09 WBC (3.8-10.6) k/uL RBC (3.80-5.40) m/uL Hgb (11.4-16.0) gm/dL Hct (34.0-46.0) % MCV (80.0-100.0) fL MCH (25.0-35.0) pg MCHC (31.0-37.0) g/dL RDW (11.5-15.5) % Plt Count (150-450) k/uL MPV Neutrophils % % Lymphocytes % % Monocytes % % Eosinophils % % Basophils % % Neutrophils # (1.3-7.7) k/uL Lymphocytes # (1.0-4.8) k/uL Monocytes # (0-1.0) k/uL Eosinophils # (0-0.7) k/uL Basophils # (0-0.2) k/uL PT (10.0-12.5) sec INR (<1.2) APTT (22.0-30.0) sec D-Dimer (<0.60) mg/L FEU Sodium (137-145) mmol/L Potassium (3.5-5.1) mmol/L Chloride (98-107) mmol/L Carbon Dioxide (22-30) mmol/L Anion Gap mmol/L BUN (7-17) mg/dL Creatinine (0.52-1.04) mg/dL Est GFR (CKD-EPI)AfAm (>60 ml/min/1.73 sqM) Est GFR (CKD-EPI)NonAf (>60 ml/min/1.73 sqM) Glucose (74-99) mg/dL Plasma Lactic Acid Brian 0.8 (0.7-2.0) mmol/L Calcium (8.4-10.2) mg/dL Total Bilirubin (0.2-1.3) mg/dL AST (14-36) U/L ALT (4-34) U/L Alkaline Phosphatase (38-126) U/L Troponin I <0.012 (0.000-0.034) ng/mL Total Protein (6.3-8.2) g/dL Albumin (3.5-5.0) g/dL Amylase (30-110) U/L Lipase (23-300) U/L Disposition Clinical Impression: Strain of thoracic back region, Intercostal muscle strain Disposition: HOME SELF-CARE Condition: Good Instructions (If sedation given, give patient instructions): Acute Low Back Pain (ED) Prescriptions: Cyclobenzaprine [Flexeril] 10 mg PO Q8H PRN #15 tab PRN Reason: Muscle Spasm Ibuprofen [Motrin] 600 mg PO Q8HR PRN #30 tab PRN Reason: Pain Is patient prescribed a controlled substance at d/c from ED?: No Referrals: Antoni Busby DO [Primary Care Provider] - 1-2 days Time of Disposition: 00:06
--- NOTE | 2024-04-08 21:29 | XR ---
EXAMINATION TYPE: XR chest 2V DATE OF EXAM: 04/08/2024 9:18 PM COMPARISON: 07/18/2020 CLINICAL INDICATION: Female, 53 years old with shortness of breath, history of Dyspnea, , TECHNIQUE: PA and lateral views FINDINGS: Heart normal size. Aorta and pulmonary vasculature within normal limits. Mild interstitial density christopher s a chronic appearance. No consolidation or pleural effusion. IMPRESSION: Chronic changes. No acute process seen. [facility], , 04/08/2024 9:27 PM
[2024-04-08 21:33] LABS: Basophils % (A) 1 %; Eosinophils # (A) 0.2 k/uL (0-0.7); Eosinophils % (A) 3 %; HCT 42.8 % (34.0-46.0); HGB 14.5 gm/dL (11.4-16.0); Lymphocytes # (A) 1.7 k/uL (1.0-4.8); Lymphocytes % (A) 25 %; MCH 31.2 pg (25.0-35.0); MCV 91.8 fL (80.0-100.0); Mean Platelet Volume 7.6; Monocytes # (A) 0.4 k/uL (0-1.0); Monocytes % (A) 6 %; Neutrophils # (A) 4.3 k/uL (1.3-7.7); Neutrophils % (A) 63 %; Platelet Count 271 k/uL (150-450); RBC 4.66 m/uL (3.80-5.40); RDW 12.5 % (11.5-15.5); WBC 6.7 k/uL (3.8-10.6)
[2024-04-08 21:37] LABS: ALT 39 U/L (4-34); AST 20 U/L (14-36); African American GFR (CKD) >90 (>60 ml/min/1.73 sqM); Alkaline Phosphatase 99 U/L (38-126); Amylase 52 U/L (30-110); Anion Gap 6 mmol/L; Blood Urea Nitrogen 8 mg/dL (7-17); Calcium 8.6 mg/dL (8.4-10.2); Carbon Dioxide 24 mmol/L (22-30); Chloride 108 mmol/L (98-107); Glucose 99 mg/dL (74-99); Lipase 95 U/L (23-300); Non-African American GFR(CKD) >90 (>60 ml/min/1.73 sqM); Potassium 3.8 mmol/L (3.5-5.1); Sodium 138 mmol/L (137-145); Total Bilirubin 0.5 mg/dL (0.2-1.3); Total Protein 7.2 g/dL (6.3-8.2)
[2024-04-08] MEDS: KETOROLAC 15 MG/ML 1 ML VIAL IM STA (21:38)
[2024-04-08 21:39] LABS: INR 0.9 (<1.2); Partial Thromboplastin Time 26.7 sec (22.0-30.0); Prothrombin Time 10.2 sec (10.0-12.5)
[2024-04-08] MEDS: ORPHENADRINE 30 MG/ML 2 ML VIAL IVP STA (23:51)
[2024-04-08] MEDS: ORPHENADRINE 30 MG/ML 2 ML VIAL IM STA (23:52)
[2024-04-09 00:19] LABS: Appearance,Urine Clear (Clear); Bilirubin,Urine Negative (Negative); Blood,Urine Negative (Negative); Budding Yeast,Urine Rare /hpf; Color,Urine Yellow; Glucose,Urine (UA) Negative (Negative); Ketones,Urine 1+ (Negative); Leukocyte Esterase,Urine Small (Negative); Mucus,Urine Many /hpf; Nitrite,Urine Negative (Negative); PH, Urine 5.5 (5.0-8.0); Protein,Urine Negative (Negative); RBC,Urine 1 /hpf (0-5); Specific Gravity,Urine 1.023 (1.001-1.035); Squamous Epithelial Cell,Urine 2 /hpf (0-4); Urobilinogen,Urine <2.0 mg/dL (<2.0); WBC,Urine 4 /hpf (0-5)
[2024-04-09 00:20] VITALS: BP 114/69; PULSE 61; RESP 18
== END 2024-04-09 00:11 | disposition home or self-care (01) ==
LOC: EC 20:03
DX: S29.011A Strain of muscle and tendon of front wall of thorax, initial encounter (principal); S29.012A Strain of muscle and tendon of back wall of thorax, initial encounter; Z87.891 Personal history of nicotine dependence; X58.XXXA Exposure to other specified factors, initial encounter
CPT/HCPCS: 93005; 85379; 80053; 82150; 83605; 83690; 84484; 85025; 85610; 85730; 71046; 99285; 96372; 96374; J2360; J1885; 36415; 81001

== ENCOUNTER 2024-05-31 14:18 | Emergency (ER) | payer BC, OTHER ==
[2024-05-31 14:44] VITALS: TEMP 98.6
--- NOTE | 2024-05-31 15:37 | ED ---
URI HPI - General Chief Complaint: Upper Respiratory Infection Stated Complaint: Abd pain,dizziness Time Seen by Provider: 05/31/24 14:29 Source: patient, RN notes reviewed Mode of arrival: ambulatory Limitations: no limitations - History of Present Illness Initial Comments: This is a 53-year-old female presenting with cough following inhalation of chem ical last night. 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 Patient states symptoms have improved since last night. Patient also mentions spasms in her back (01/18) and upper abdomen. Onset/Timin -: days(s) Consistency: constant Associated Symptoms: headache, sore throat, cough Treatments Prior to Arrival: none - Related Data Home Medications Medication Instructions Recorded Confirmed Omeprazole 40 mg PO DAILY PRN 07/19/20 04/03/21 Acetaminophen Tab [Tylenol Tab] 500 mg PO Q6H PRN 04/03/21 04/03/21 Ibuprofen [Motrin Ib] 600 mg PO Q8H PRN 04/03/21 04/03/21 Previous Rx's Medication Instructions Recorded Omeprazole [PriLOSEC] 20 mg PO AC-BID #60 cap 09/28/21 polyethylene glycoL 3350 [Miralax] 17 gm PO DAILY #527 gm 09/28/21 Cyclobenzaprine [Flexeril] 10 mg PO Q8H PRN #15 tab 04/09/24 Ibuprofen [Motrin] 600 mg PO Q8HR PRN #30 tab 04/09/24 predniSONE 50 mg PO DAILY #5 tab 05/31/24 Allergies Allergy/AdvReac Type Severity Reaction Status Date / Time No Known Allergies Allergy Verified 05/31/24 14:44 Review of Systems ROS Statement: Those systems with pertinent positive or pertinent negative responses have been documented in the HPI. ROS Other: All systems not noted in ROS Statement are negative. Past Medical History Past Medical History: GERD/Reflux Additional Past Medical History / Comment(s): cyst to roof of mouth with removal/caused deterioration of bones in mouth and has had multiple dental procedures to restore teeth, pt states she has felt "weak" since oral surgery, restless/painful legs lately at night, recent "bloating whenever I eat" History of Any Multi-Drug Resistant Organisms: None Reported Additional Past Surgical History / Comment(s): Cystectomy/drain placed to cyst in the roof of her mouth at [facility] Past Anesthesia/Blood Transfusion Reactions: No Reported Reaction Past Psychological History: Anxiety Smoking Status: Former smoker Past Alcohol Use History: None Reported Past Drug Use History: None Reported - Past Family History Father Family Medical History: Myocardial Infarction (IA) Additional Family Medical History / Comment(s): Father of a massive IA at the age of 75 yrs. Mother Additional Family Medical History / Comment(s): Mother had a leaky heart valve. She in her 70s. General Exam Limitations: no limitations General appearance: alert, in no apparent distress Head exam: Present: atraumatic, normocephalic, normal inspection Eye exam: Present: normal appearance, PERRL, EOMI. Absent: scleral icterus, conjunctival injection, periorbital swelling ENT exam: Present: normal exam, mucous membranes moist Neck exam: Present: normal inspection. Absent: tenderness, meningismus, lymp hadenopathy Respiratory exam: Present: decreased breath sounds. Absent: respiratory distress, wheezes, rales, rhonchi, stridor Cardiovascular Exam: Present: regular rate, normal rhythm, normal heart sounds. Absent: systolic murmur, diastolic murmur, rubs, gallop, clicks GI/Abdominal exam: Present: soft, normal bowel sounds. Absent: distended, tenderness, guarding, rebound, rigid Extremities exam: Present: normal inspection, full ROM, normal capillary refill. Absent: tenderness, pedal edema, joint swelling, calf tenderness Back exam: Present: normal inspection Neurological exam: Present: alert, oriented X3, CN II-XII intact Psychiatric exam: Present: normal affect, normal mood Skin exam: Present: warm, dry, intact, normal color. Absent: rash Course Vital Signs 05/31/24 05/31/24 05/31/24 14:41 16:07 17:51 Temperature 98.6 F 98.6 F Pulse Rate 95 90 Respiratory 20 18 18 Rate Blood Pressure 129/57 127/68 O2 Sat by Pulse 97 97 Oximetry Medical Decision Making - Medical Decision Making Was pt. sent in by a medical professional or institution (, PA, AUTO CLOCKS REPAIRER, urgent care, hospital, or shelter...) When possible be specific @ -No Did you speak to anyone other than the patient for history (EMS, parent, family, police, friend...)? What history was obtained from this source @ -No Did you review nursing and triage notes (agree or disagree)? Why? @ -I reviewed and agree with nursing and triage notes Were old charts reviewed (outside hosp., previous admission, EMS record, old EKG, old radiological studies, urgent care reports/EKG's, shelter records)? Report findings @ -No old charts were reviewed Differential Diagnosis (chest pain, altered mental status, abdominal pain women, abdominal pain men, vaginal bleeding, weakness, fever, dyspnea, syncope, headache, dizziness, GI bleed, back pain, seizure, CVA, palpatations, mental health, musculoskeletal)? @ -Differential Dyspnea: Coronary syndrome, arrhythmia, tamponade, asthma, COPD, pulmonary embolism, pneumonia, pneumothorax, pulmonary effusion, anaphylaxis, diabetic ketoacidosis, flailed chest, pulmonary contusion, diaphragmatic rupture, anemia, neuromuscular, this is not meant to be an all-inclusive list. EKG interpreted by me (3pts min.). @ -Not done X-rays interpreted by me (1pt min.). @ -CXR shows no acute cardiopulmonary process CT interpreted by me (1pt min.). @ -None done U/S interpreted by me (1pt. min.). @ -None done What testing was considered but not performed or refused? (CT, X-rays, U/S, labs)? Why? @ -None What meds were considered but not given or refused? Why? @ -None Did you discuss the management of the patient with other professionals (professionals i.e. , PA, AUTO CLOCKS REPAIRER, lab, RT, psych nurse, social secretary, embosser apprentice, teacher, forward air controller/air officer, block and case maker)? Give summary @ -No Was smoking cessation discussed for >3mins.? @ -No Was critical care preformed (if so, how long)? @ -No Were there social determinants of health that impacted care today? How? (Homelessness, low income, unemployed, alcoholism, drug addiction, transportation, low edu. Level, literacy, decrease access to med. care, [facility], rehab)? @ -No Was there de-escalation of care discussed even if they declined (Discuss DNR or withdrawal of care, Hospice)? DNR status @ -No What co-morbidities impacted this encounter? (DM, HTN, Smoking, COPD, CAD, Cancer, CVA, ARF, Chemo, Hep., AIDS, mental health diagnosis, sleep apnea, morbid obesity)? @ -None Was patient admitted / discharged? Hospital course, mention meds given and route, prescriptions, significant lab abnormalities, going to OR and other pertinent info. @ -Lab work shows VBG pH 7.43 and otherwise unremarkable. Cepheid test positive for COVID-19. CXR shows no acute cardiopulmonary process. Patient initially provided IV Solu-Medrol and normal saline. Discharged with T3 starter pack. Prednisone sent to patient's pharmacy. Discussed patient with Dr. Ponce. Undiagnosed new problem with uncertain prognosis? @ -No Drug Therapy requiring intensive monitoring for toxicity (Heparin, Nitro, Insulin, Cardizem)? @ -No Were any procedures done? @ -No Diagnosis/symptom? @ -COVID-19, back pain Acute, or Chronic, or Acute on Chronic? @ -Acute Uncomplicated (without systemic symptoms) or Complicated (systemic symptoms)? @ -Complicated Side effects of treatment? @ -No Exacerbation, Progression, or Severe Exacerbation? @ -No Poses a threat to life or bodily function? How? (Chest pain, USA, IA, pneumonia, PE, COPD, DKA, ARF, appy, cholecystitis, CVA, Diverticulitis, Homicidal, Suicidal, threat to staff... and all critical care pts) @ -No - Lab Data Result diagrams: 05/31/24 16:06 05/31/24 16:06 Lab Results 05/31/24 05/31/24 05/31/24 Range/Units 16:06 16:06 16:06 WBC 8.6 (3.8-10.6) k/uL RBC 4.42 (3.80-5.40) m/uL Hgb 13.5 (11.4-16.0) gm/dL Hct 40.3 (34.0-46.0) % MCV 91.2 (80.0-100.0) fL MCH 30.6 (25.0-35.0) pg MCHC 33.6 (31.0-37.0) g/dL RDW 12.6 (11.5-15.5) % Plt Count 239 (150-450) k/uL MPV 7.6 Neutrophils % 84 % Lymphocytes % 9 % Monocytes % 5 % Eosinophils % 1 % Basophils % 0 % Neutrophils # 7.2 (1.3-7.7) k/uL Lymphocytes # 0.7 L (1.0-4.8) k/uL Monocytes # 0.5 (0-1.0) k/uL Eosinophils # 0.1 (0-0.7) k/uL Basophils # 0.0 (0-0.2) k/uL VBG pH (7.31-7.41) VBG pCO2 (37-51) mmHg VBG HCO3 (24-28) mmol/L Sodium 137 (137-145) mmol/L Potassium 4.2 (3.5-5.1) mmol/L Chloride 101 (98-107) mmol/L Carbon Dioxide 27 (22-30) mmol/L Anion Gap 9 mmol/L BUN 11 (7-17) mg/dL Creatinine 0.60 (0.52-1.04) mg/dL Est GFR (CKD-EPI)AfAm >90 (>60 ml/min/1.73 sqM) Est GFR (CKD-EPI)NonAf >90 (>60 ml/min/1.73 sqM) Glucose 100 H (74-99) mg/dL Calcium 10.1 (8.4-10.2) mg/dL Total Bilirubin 0.5 (0.2-1.3) mg/dL AST 22 (14-36) U/L ALT 23 (4-34) U/L Alkaline Phosphatase 107 (38-126) U/L Total Protein 7.5 (6.3-8.2) g/dL Albumin 4.4 (3.5-5.0) g/dL Influenza Type A (PCR) Not Detected (Not Detectd) Influenza Type B (PCR) Not Detected (Not Detectd) RSV (PCR) Not Detected (Not Detectd) SARS-CoV-2 (PCR) Detected A (Not Detectd) 05/31/24 Range/Units 16:06 WBC (3.8-10.6) k/uL RBC (3.80-5.40) m/uL Hgb (11.4-16.0) gm/dL Hct (34.0-46.0) % MCV (80.0-100.0) fL MCH (25.0-35.0) pg MCHC (31.0-37.0) g/dL RDW (11.5-15.5) % Plt Count (150-450) k/uL MPV Neutrophils % % Lymphocytes % % Monocytes % % Eosinophils % % Basophils % % Neutrophils # (1.3-7.7) k/uL Lymphocytes # (1.0-4.8) k/uL Monocytes # (0-1.0) k/uL Eosinophils # (0-0.7) k/uL Basophils # (0-0.2) k/uL VBG pH 7.43 H (7.31-7.41) VBG pCO2 41 (37-51) mmHg VBG HCO3 27 (24-28) mmol/L Sodium (137-145) mmol/L Potassium (3.5-5.1) mmol/L Chloride (98-107) mmol/L Carbon Dioxide (22-30) mmol/L Anion Gap mmol/L BUN (7-17) mg/dL Creatinine (0.52-1.04) mg/dL Est GFR (CKD-EPI)AfAm (>60 ml/min/1.73 sqM) Est GFR (CKD-EPI)NonAf (>60 ml/min/1.73 sqM) Glucose (74-99) mg/dL Calcium (8.4-10.2) mg/dL Total Bilirubin (0.2-1.3) mg/dL AST (14-36) U/L ALT (4-34) U/L Alkaline Phosphatase (38-126) U/L Total Protein (6.3-8.2) g/dL Albumin (3.5-5.0) g/dL Influenza Type A (PCR) (Not Detectd) Influenza Type B (PCR) (Not Detectd) RSV (PCR) (Not Detectd) SARS-CoV-2 (PCR) (Not Detectd) Disposition Clinical Impression: Bronchitis Disposition: HOME SELF-CARE Condition: Good Instructions (If sedation given, give patient instructions): Acute Bronchitis (ED) Prescriptions: predniSONE 50 mg PO DAILY #5 tab Is patient prescribed a controlled substance at d/c from ED?: No Referrals: Antoni Busby DO [Primary Care Provider] - 1-2 days Time of Disposition: 17:03
--- NOTE | 2024-05-31 15:55 | XR ---
EXAMINATION TYPE: XR chest 2V DATE OF EXAM: 05/31/2024 CLINICAL HISTORY: Cough TECHNIQUE: Frontal and lateral views of the chest are obtained. COMPARISON: Chest x-ray April 08, 2024 FINDINGS: There is no suspicious new focal air space opacity, pleural effusion, or pneumothorax seen . The cardiac silhouette size remains within normal limits. The osseous structures are intact. IMPRESSION: No acute pulmonary infiltrate. No significant change from prior. [facility], , 05/31/2024 3:52 PM
[2024-05-31] MEDS: SODIUM CHLORIDE 0.9% 1,000 ML IV STA (16:01)
[2024-05-31 16:12] VITALS: RESP 18
[2024-05-31] MEDS: methylPREDNISolone SOD SUCCI 125 MG/2 ML VIAL IV STA (16:17)
[2024-05-31] MEDS: ACET/COD 300 MG/30 MG STARTER PACK 6 TAB BTL PO STA (16:17)
[2024-05-31 16:24] LABS: Basophils % (A) 0 %; Eosinophils # (A) 0.1 k/uL (0-0.7); Eosinophils % (A) 1 %; HCT 40.3 % (34.0-46.0); HGB 13.5 gm/dL (11.4-16.0); Lymphocytes # (A) 0.7 k/uL (1.0-4.8); Lymphocytes % (A) 9 %; MCH 30.6 pg (25.0-35.0); MCHC 33.6 g/dL (31.0-37.0); MCV 91.2 fL (80.0-100.0); Mean Platelet Volume 7.6; Monocytes # (A) 0.5 k/uL (0-1.0); Monocytes % (A) 5 %; Neutrophils # (A) 7.2 k/uL (1.3-7.7); Neutrophils % (A) 84 %; Platelet Count 239 k/uL (150-450); RBC 4.42 m/uL (3.80-5.40); RDW 12.6 % (11.5-15.5); WBC 8.6 k/uL (3.8-10.6)
[2024-05-31 16:25] LABS: VBG PH 7.43 (7.31-7.41)
[2024-05-31 16:55] LABS: ALT 23 U/L (4-34); AST 22 U/L (14-36); African American GFR (CKD) >90 (>60 ml/min/1.73 sqM); Albumin 4.4 g/dL (3.5-5.0); Alkaline Phosphatase 107 U/L (38-126); Anion Gap 9 mmol/L; Blood Urea Nitrogen 11 mg/dL (7-17); Calcium 10.1 mg/dL (8.4-10.2); Carbon Dioxide 27 mmol/L (22-30); Chloride 101 mmol/L (98-107); Glucose 100 mg/dL (74-99); Non-African American GFR(CKD) >90 (>60 ml/min/1.73 sqM); Potassium 4.2 mmol/L (3.5-5.1); Sodium 137 mmol/L (137-145); Total Bilirubin 0.5 mg/dL (0.2-1.3); Total Protein 7.5 g/dL (6.3-8.2)
[2024-05-31 17:03] LABS: Influenza A Not Detected (Not Detectd); Influenza B Not Detected (Not Detectd); RSV Not Detected (Not Detectd)
[2024-05-31 17:53] VITALS: BP 127/68; PULSE 90
== END 2024-05-31 17:54 | disposition home or self-care (01) ==
LOC: EC 14:18
DX: U07.1 COVID-19 (principal); J40 Bronchitis, not specified as acute or chronic; M54.9 Dorsalgia, unspecified; Z87.891 Personal history of nicotine dependence
CPT/HCPCS: 36415; 80053; 82803; 85025; 87636; 71046; 99284; 96374; 96361; J2919